=== PATIENT | male | born 1950 | race Caucasian/White ===

== ENCOUNTER 2019-06-13 09:47 | Day surgery (SDC) | payer MEDICARE, OTHER ==
[~2019-06-13] VITALS: Ht 170.2 cm; Wt 101.0 kg
[2019-06-13] MEDS ORDERED: ASPI-496 PO (10:39)
[2019-06-13] MEDS ORDERED: LOSA100T14 PO (10:40)
[2019-06-13] MEDS ORDERED: PANT40GR PO (10:41)
[2019-06-13] MEDS ORDERED: PROP10TA51 PO (10:42)
[2019-06-13] MEDS ORDERED: RANI300T PO (10:43)
[2019-06-13] MEDS ORDERED: EVOL140P IM (10:46)
[2019-06-13] MEDS ORDERED: CHOL500015 PO (10:47)
[2019-06-13] MEDS ORDERED: COLC0.6T47 PO (10:49)
[2019-06-13 10:50] LABS: BASOPHILS # (AUTO) 0.06 x10^3/uL (0-0.1); BASOPHILS % (AUTO) 1 % (0-1); EOSINOPHILS # (AUTO) 0.12 x10^3/uL (0-0.4); EOSINOPHILS % (AUTO) 2 % (1-7); LYMPHOCYTES # (AUTO) 2.07 x10^3/uL (1-3.4); LYMPHOCYTES % (AUTO) 33 % (22-44); MD NO; MEAN CORPUSCULAR HEMOGLOBIN 32.5 pg (27.5-34.5); MEAN CORPUSCULAR HGB CONC 33.8 g/dL (33.2-36.2); MEAN CORPUSCULAR VOLUME 96.3 fL (81-97); MEAN PLATELET VOLUME 10.5 fL (7.4-10.4); MONOCYTES # (AUTO) 0.63 x10^3/uL (0.2-0.8); MONOCYTES % (AUTO) 10 % (2-9); NEUTROPHILS # (AUTO) 3.48 x10^3/uL (1.8-6.8); NEUTROPHILS % (AUTO) 55 % (42-75); PLATELET COUNT 174 x10^3/uL (130-400); RED BLOOD COUNT 5.28 x10^6/uL (4.38-5.82); RED CELL DISTRIBUTION WIDTH 12.8 % (9.4-14.8)
[2019-06-13] MEDS ORDERED: NAPR220C2 PO (10:50)
[2019-06-13 10:51] VITALS: BP 181/92
[2019-06-13 11:03] LABS: ALBUMIN 3.9 g/dL (3.4-5.0); ANION GAP 6 mmol/L (5-15); CHLORIDE 109 mmol/L (98-107)
[2019-06-13 11:09] LABS: ALANINE AMINOTRANSFERASE 68 U/L (12-78); ALKALINE PHOSPHATASE 69 U/L (45-117); BILIRUBIN,TOTAL 0.6 mg/dL (0.2-1.0); CREATININE 1.19 mg/dL (0.7-1.3); TOTAL PROTEIN 7.2 g/dL (6.4-8.2)
[2019-06-13] MEDS ORDERED: MIDAZOLAM 1 MG/ML, 5ML ONE (11:46)
[2019-06-13] MEDS ORDERED: HEPARIN 1,000 UNITS/ML, 10ML ONE (11:47)
[2019-06-13] MEDS ORDERED: LIDOCAINE-MPF 1%, 5ML ONE (11:47)
[2019-06-13] MEDS ORDERED: TICAGRELOR 90 MG TABLET ONE (11:47)
[2019-06-13] MEDS ORDERED: FENTANYL PF 100 MCG/2ML ONE (11:47)
[2019-06-13] MEDS ORDERED: VERAPAMIL 2.5 MG/ML, 2ML ONE (11:47)
[2019-06-13] MEDS ORDERED: BIVALIRUDIN 250 MG ONE (11:47)
[2019-06-13] MEDS ORDERED: PRASUGREL 10 MG TABLET ONE (11:49)
[2019-06-13] MEDS ORDERED: NITROGLYCERIN 5 MG/ML, 10ML ONE (11:50)
== END 2019-06-13 14:50 | disposition home or self-care (01) ==
LOC: CACL 09:47
PROVIDERS: ATTEND Internal Medicine Cardiovascular Disease
DX: R94.39 Abnormal result of other cardiovascular function study (principal); I25.110 Atherosclerotic heart disease of native coronary artery with unstable angina pectoris; I25.83 Coronary atherosclerosis due to lipid rich plaque; I10 Essential (primary) hypertension; E78.5 Hyperlipidemia, unspecified; Z72.89 Other problems related to lifestyle; Z79.82 Long term (current) use of aspirin; Z79.01 Long term (current) use of anticoagulants; Z79.899 Other long term (current) drug therapy; Z88.0 Allergy status to penicillin; Z98.890 Other specified postprocedural states
CPT/HCPCS: 36415; 80053; 85025; 93458; 99156; C1769; C1894; J1644; J2250; J3010; Q9967; J0583